=== PATIENT | female | born 1990 | race Hispanic/Latino ===

== ENCOUNTER 2016-08-19 15:07 | Emergency (ER) | payer MEDICAID, OTHER ==
[~2016-08-19] VITALS: Ht 162.6 cm; Wt 59.1 kg
[~2016-08-19 15:07] MED LIST: PREN1TAB80 PO
[2016-08-19 15:14] VITALS: BP 110/75; PULSE 95; RESP 20; O2SAT 100
--- NOTE | 2016-08-19 16:41 | ED.REPORT ---
HPI-Abd Pain F Under 40 Date of Service Aug 19, 2016 ED Provider: Dr. Waddell 26 year old female who is currently 7-8 weeks by LNMP, A3, with a hx of HPV presents to the ED due to lower abd cramping and vaginal discharge for 2-3 weeks. Pt has had 3 positive home tests. She has had some vaginal "spotting" for a few week, with no heavy menses at the normal time of menses. After intercourse a few days ago she has had dark brown discharge that has not been decreasing. Pt also complains of constant nausea and vomiting but denies fever, chills, weight changes and urinary changes. She is RH+ per old records. Nursing Notes Stated Complaint: DARK DISCHARGE/BLOOD WITH Chief Complaint: Female Abdominal Pain Nursing Notes Reviewed: Yes Allergies: Coded Allergies: No Known Allergies (Verified , 02/20/06) Scheduled Vits W-Ca,Fe,FA(<1Mg) ( Vitamins) 1 Each Tablet 1 EACH PO DAILY General Time Seen by MD: 16:41 Chief Complaint Abdominal pain, , 1st trimester, Vaginal bleeding Hx Obtained From: Patient Arrived By: Walk-in Onset Occurred: More than a week ago... Symptom Duration: Since onset Progression since Onset: Waxes and wanes Location: : Abdomen lower Quality: Cramping, Painful Severity: Current: Moderate Associated with: Reports: Nausea, Vomiting, Denies: Fever, Shortness of breath, Urinary tract symptoms Status: Positive - home urine HCG Sexual History / Control: Reports Pt is sexually active : 7 Para: 3 Abortions: 3 RH Status / Blood Type: Rh Positive Pertinent Negative: Relieved by nothing Past Medical History Past Medical History HPV A3 Past Surgical History D&C, rt hand tendon repair Smoking History Never Smoker Social History Alcohol Use: "Social" Drug Use: Denies drug use Review of Systems Basic Review of Systems Eyes: Vision NL, No discharge ENT: Hearing NL, No pain, No nasal congestion, No pharyngeal pain Neurologic: NL mental status, No weakness, No numbness Psychiatric: Normal thought content Constitutional: Denies: Chills, Fever Respiratory: Denies: Non-productive cough, Shortness of breath Cardiovascular: Denies: Chest pain, Edema GI: Reports: Abdominal pain, Nausea, Vomiting, Denies: Constipation, Diarrhea, Hematemesis Female: Reports: , Vaginal bleeding - abnl, Denies: Dysuria, Flank pain Complete sys rev & neg: except as marked. Physical Exam Initial Vital Signs Vital Signs (First) Date Time Temp Pulse Resp B/P Pulse Ox O2 Delivery O2 Flow Rate FiO2 08/19/16 15:14 37.2 95 20 110/75 100 Room Air Initial VS: Reviewed, Vital signs normal Head / Eyes: Atraumatic, Normocephalic, PERRL ENT: Mucous membranes moist, Conjunctiva normal, No scleral icterus Neck: Supple, Full range of motion Extremities: Vascular intact Skin: Warm, Dry, No cyanosis Neurologic: Alert, Oriented, Nonfocal Psychiatric: Mood/affect normal, Behavior normal, Normal thought content General/Constitutional: Awake, Alert, Cooperative Respiratory / Chest: Breath sounds NL, Breath sounds = bilat, No respiratory distress, No rales, No rhonchi, No wheezing Cardiovascular: Heart rate NL, Regular rhythm, Heart sounds NL, Peripheral circulation NL Abdomen: Soft, No guarding, No rebound Tenderness/Guarding/Rebound: Positive: Tender suprapubic Back: Atraumatic, Inspection NL, Full range of motion Interpretation & Diagnostics Lab Results Interpretation Test 08/19/16 16:25 08/19/16 18:26 HCG Beta Subunit [id number]/mL Hold Snyder Top Tube Received (Received) Urine Color Straw (YELLOW) Urine Appearance Hazy (CLEAR,HAZY) Urine pH 6.0 (5.0-8.0) Urine Specific [place] 1.005 (1.003-1.035) Urine Protein Negativemg/dL (NEG,TRACE) Urine Glucose (UA) Negativemg/dL (NEGATIVE) Urine Ketones Negativemg/dL (NEGATIVE) Urine Occult Blood Trace (NEGATIVE) Urine Nitrite Negative (NEGATIVE) Urine Bilirubin Negative (NEGATIVE) Urine Urobilinogen Normalmg/dL (NORMAL) Urine Leukocyte Esterase Negative (NEGATIVE) Urine RBC 0-2/hpf (0-2) Urine WBC 0-5/hpf (0-5) Urine Epithelial Cells None/hpf (NONE-MOD) Urine Crystals None seen (NONE SEEN) Urine Bacteria Few/hpf (NONE-FEW) Urine Hyaline Casts None/lpf (NONE) Urine Granular Casts None seen (NONE SEEN) Urine Waxy Casts None seen (NONE SEEN) Urine Red Blood Cell Casts None seen (NONE SEEN) Urine White Blood Cell Casts None seen (NONE SEEN) Urine Mucus None seen (None Seen) Urine Trichomonas None seen (NONE SEEN) Urine Yeast None (NONE SEEN) Urinalysis Comment None Urine Culture Reflexed Not indicated General Lab Results Interp 1: Labs reviewed US Focused OB Normal single living IUP rate 172 8 weeks 2 days No ectopic . Exam Type: Diagnostic Re-Eval/Medical Decision Med Decision/Clinical Course The patient presents with bleeding in early , ultrasound confirms an IUP. Given her exam differential diagnoses considered were spontaneous , normal menstruation, urinary tract infection, ectopic , diverticulitis, appendicitis. Re-Evaluation/Progress : Time of Eval: 19:23 Patient Status: Condition improved, Pain improved Re-Evaluation/Progress Note: Updated pt of labs and ultrasound results. Discussed plan for discharge and follow up. All questions addressed. Counseled Regarding: Diagnosis, Lab results, Need for follow-up, When/why to return to ED Discharge & Departure Primary Impression: Threatened Disposition: Home Discharge Condition All VS Reviewed: Yes Condition: Improved Additional Instructions: Stay on pelvic rest with no intercourse. Do not do any strenuous work or exercise. 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 Seek care for severe bleeding, or bleeding associated with shortness of breath, dizziness, weakness, or with any other concerns. Referrals: NOPCP (PCP) Scribe Attestation Portions of this note were transcribed by Sada Leyva. I, (Dr. Waddell) personally performed the history, physical exam and medical decision-making; I reviewed and confirmed the accuracy of the information in the transcribed note. Signed by: Sada Leyva. 08/19/2016, 1925 Leana Waddell MD Aug 19, 2016 16:41 Sada Leyva Aug 19, 2016 17:17
[2016-08-19 19:00] VITALS: BP 112/56; RESP 18; O2SAT 100
[2016-08-19 19:00] LABS: APPEARANCE,URINE HAZY (CLEAR,HAZY); COLOR,URINE STRAW (YELLOW); OCCULT BLOOD,URINE TRACE (NEGATIVE); UROBILINOGEN,URINE NORMAL (NORMAL)
[2016-08-19 19:32] VITALS: BP 118/65; PULSE 72; RESP 14; O2SAT 98
--- NOTE | 2016-08-19 19:45 | DRSVH ---
PROCEDURE: US OB<14 WKS+OB TRANSVAG INDICATIONS: 26 year-old female with abdominal cramping and spotting. OUTSIDE/PRIOR DATING DATA: Last menstrual period (LMP): Not known. LMP-based estimated date of delivery (GLADYS): Not known. First dating scan (date and location): Present study. Estimated date of delivery (GLADYS) from first dating scan: March 29, 2017. TECHNIQUE: Real-time scanning was performed of the fetus and maternal pelvic organs, with image documentation. Endovaginal scanning was also performed to better visualize the fetus and maternal ovaries. COMPARISON: None. FINDINGS: Embryo: Single living intrauterine gestation demonstrates normal heart rate of 172 beats per mi nute. [place]-rump length of 1.8 cm corresponds with 8 weeks 2 days estimated gestational age. Normal y olk sac is present. Amniotic fluid is qualitatively normal in amount. No kim-gestational sac bleed. Measurement variability in dating: +/- 4 weeks by LMP, +/- 7 days by mean sac diameter (use before 6 weeks gestation if crown-rump length not able to be measured), +/- 5 days by crown-rump length (6-12 weeks gestation). Maternal organs: Ovaries are normal in size, with 1.8 cm left ovarian corpus luteal cyst of pregnanc y. Limited images through the kidneys demonstrate no hydronephrosis. IMPRESSION: 1. Single living intrauterine gestation, with ultrasound-derived estimated gestational age of 8 weeks 2 days, +/-5 days. With the same measurement variability, ultrasound-derived estimated date of latoya martínez is March 29, 2017. 2. No sonographic explanation for vaginal spotting. Dictated by: Matt Preston M.D. on 08/19/2016 at 19:43 Approved by: Matt Preston M.D. on 08/19/2016 at 19:43
== END 2016-08-19 19:35 | disposition home or self-care (01) ==
LOC: SED 15:07
DX: O20.0 Threatened abortion (principal); Z3A.08 8 weeks gestation of pregnancy; Z87.42 Personal history of other diseases of the female genital tract